=== PATIENT | male | born 1945 | race Hispanic/Latino ===

== ENCOUNTER 2017-05-21 13:44 | Emergency (ER) | payer MEDICARE ==
[2017-05-21 13:45] VITALS: BMI 19.8
[2017-05-21 13:54] VITALS: TEMP 97.4
--- NOTE | 2017-05-21 14:06 | ED PDOC ---
HPI: Hypertension/Hypotension Time Seen by Provider: 05/21/17 13:55 Chief Complaint (Nursing): High Blood Pressure Chief Complaint (Provider): High Blood Pressure History Per: Patient History/Exam Limitations: no limitations Additional Complaint(s): Aroldo Jurado is a 71 year old male with a history of COPD that presents to the ED with a chief complaint of elevated blood pressure. Patient is also experiencing shortness of breath, but he attributes that to his COPD. He denies any headache, dizziness, or chest pain. Patient does not have a past history of hypertension. Past Medical History Reviewed: Historical Data, Nursing Documentation, Vital Signs Vital Signs: Last Vital Signs Temp 97.4 F L 05/21/17 13:50 Pulse 84 05/21/17 13:50 Resp 18 05/21/17 13:50 BP 157/83 H 05/21/17 13:50 Pulse Ox 99 05/21/17 13:50 - Medical History PMH: COPD Denies: Depression, HTN - Family History Family History: States: Unknown Family Hx - Social History Current smoker - smoking cessation education provided: Yes (heavy smoker) Alcohol: None Drugs: Denies - Home Medications Home Medications: Ambulatory Orders Medication Instructions Recorded Enalapril Maleate [Vasotec] 10 mg PO DAILY #30 tab 05/21/17 - Allergies Allergies/Adverse Reactions: Allergies Allergy/AdvReac Type Severity Reaction Status Date / Time No Known Allergies Allergy Verified 07/20/14 09:20 Review of Systems Constitutional: Positive for: Other (elevated blood pressure) Cardiovascular: Negative for: Chest Pain Respiratory: Positive for: Shortness of Breath (Pt attributes SOB to COPD) Neurological: Negative for: Headache, Dizziness Physical Exam - Reviewed Nursing Documentation Reviewed: Yes Vital Signs Reviewed: Yes - Physical Exam Appears: Positive for: Non-toxic, No Acute Distress Head Exam: Positive for: ATRAUMATIC, NORMOCEPHALIC Skin: Positive for: Normal Color, Warm Cardiovascular/Chest: Positive for: Regular Rate, Rhythm. Negative for: Murmur Respiratory: Positive for: Rhonchi (scattered). Negative for: Wheezing, Respiratory Distress Gastrointestinal/Abdominal: Positive for: Normal Exam, Soft. Negative for: Tenderness Extremity: Positive for: Normal ROM. Negative for: Swelling Neurologic/Psych: Positive for: Alert, Oriented. Negative for: Motor/Sensory Deficits (no focal deficits) - Laboratory Results Result Diagrams: 05/21/17 14:10 - ECG O2 Sat by Pulse Oximetry: 99 (RA) Pulse Ox Interpretation: Normal Medical Decision Making Medical Decision Making: Impression: Elevated Blood Pressure Plan: * EKG * CBC * CMP * Reevaluation Scribe Attestation: Documented by Lakesha Osei, acting as a scribe for Jim Carl MD. Provider Scribe Attestation: All medical record entries made by the Scribe were at my direction and personally dictated by me. I have reviewed the chart and agree that the record accurately reflects my personal performance of the history, physical exam, medical decision making, and the department course for this patient. I have also personally directed, reviewed, and agree with the discharge instructions and disposition. Disposition - Clinical Impression Clinical Impression: Hypertension - Patient ED Disposition Is Patient to be Admitted: No - Disposition Referrals: Pipo Lama MD [Family Provider] - Disposition: Routine/Home Disposition Time: 14:44 Condition: FAIR Prescriptions: Enalapril Maleate [Vasotec] 10 mg PO DAILY #30 tab Instructions: Hypertension (ED)
[2017-05-21 14:33] LABS: BASO % 0.4 % (0.0-2.0); EOS # 0.1 K/uL (0.0-0.7); EOS % 1.3 % (0.0-4.0); LYMPH # 2.7 K/uL (1.0-4.3); MEAN CELL VOLUME 93.1 fl (80.0-94.0); MEAN CORPUSCULAR HEMOGLOBIN 31.9 pg (27.0-31.0); MEAN CORPUSCULAR HGB CONC 34.2 g/dL (33.0-37.0); MEAN PLATELET VOLUME 7.4 fl (7.2-11.7); MONO # 1.2 K/uL (0.0-0.8); MONO % 10.9 % (0.0-10.0); NEUT % 63.4 % (50.0-75.0); NRBC % 0.1 % (0.0-0.0); RBC 4.4 Mil/uL (4.40-5.90); RED CELL DISTRIBUTION WIDTH 12.9 % (11.5-14.5); WHITE BLOOD COUNT 11.1 K/uL (4.8-10.8)
[2017-05-21 14:40] LABS: ALB/GLOB RATIO 1.2 (1.0-2.1); ALBUMIN 4.7 g/dL (3.5-5.0); ALT/SGPT 33 U/L (21-72); AST/SGOT 35 U/L (17-59); BLOOD UREA NITROGEN 16 mg/dl (9-20); CALCIUM 9.6 mg/dL (8.4-10.2); GFR AFRICAN-AMERICAN > 60; GFR NON-AFRICAN AMERICAN > 60
[2017-05-21 14:59] VITALS: BP 132/74; PULSE 79; RESP 20; O2SAT 98
--- NOTE | 2017-05-22 09:01 | CARD ---
APPROVED REPORT EKG Measurement Heart [id number] <Conclusion> Normal sinus rhythm Possible Left atrial enlargement Septal infarct, age undetermined Abnormal ECG
== END 2017-05-21 14:55 | disposition home or self-care (01) ==
LOC: H.ER 13:44
DX: I10 Essential (primary) hypertension (principal); R06.02 Shortness of breath; J44.9 Chronic obstructive pulmonary disease, unspecified